=== PATIENT | female | born 1980 ===

== ENCOUNTER 2017-07-16 22:46 | Emergency (ER) | payer MEDICAID ==
[2017-07-16 23:00] VITALS: BP 95/63; PULSE 86; RESP 20; TEMP 98.7; O2SAT 98
--- NOTE | 2017-07-16 23:24 | C.PDOC ---
History Of Present Illness 36 year old female who presents to the ER with a complaint of cough, nasal congestion, and sore throat for the past 6 days. Patient states she has been using otc ampicillin with no relief which prompted ER visit. Denies fever or SOB. Time Seen by Provider: 07/16/17 23:05 Chief Complaint (Nursing): Cough, Cold, Congestion History Per: Patient History/Exam Limitations: no limitations Onset/Duration Of Symptoms: Days Current Symptoms Are (Timing): Still Present Location Of Pain: Throat Sick Contacts (Context): None Associated Symptoms: Cough, Nasal Congestion. denies: Fever Ear Symptoms: Bilateral: None Recent travel outside of the [place]: No Past Medical History Reviewed: Historical Data, Nursing Documentation, Vital Signs Vital Signs: Last Vital Signs Temp 98.7 F 07/16/17 22:57 Pulse 86 07/16/17 22:57 Resp 20 07/16/17 22:57 BP 95/63 L 07/16/17 22:57 Pulse Ox 98 07/17/17 01:08 - Medical History PMH: No Chronic Diseases Surgical History: No Surg Hx Family History: States: Unknown Family Hx - Social History Hx Alcohol Use: Yes Hx Substance Use: No - Immunization History Hx Tetanus Toxoid Vaccination: No Hx Influenza Vaccination: No Hx Pneumococcal Vaccination: No Review Of Systems Constitutional: Negative for: Fever ENT: Positive for: Nose Congestion, Throat Pain Cardiovascular: Negative for: Chest Pain Respiratory: Positive for: Cough. Negative for: Shortness of Breath Physical Exam - Physical Exam Appears: Non-toxic Skin: Normal Color, Warm, Dry Head: Atraumatic, Normacephalic, Tenderness (Frontal sinus) Ear(s): Bilateral: Normal Nose: Other (Enlarged nasal turbinates) Oral Mucosa: Moist Throat: Normal, No Erythema, No Exudate Neck: Normal, Supple Chest: Symmetrical, No Tenderness Cardiovascular: Rhythm Regular, No Murmur Respiratory: Normal Breath Sounds, No Rales, No Rhonchi, No Wheezing Gastrointestinal/Abdominal: Soft, No Tenderness Neurological/Psych: Oriented x3, Normal Speech, Normal Cognition ED Course And Treatment O2 Sat by Pulse Oximetry: 98 (Room air) Pulse Ox Interpretation: Normal Progress Note: Patient is stable in NAD, VSS, Meds prescribed and advised to follow up with her PMD. Disposition Counseled Patient/Family Regarding: Diagnosis, Need For Followup, Rx Given - Disposition Referrals: [facility] [Outside] Disposition: HOME/ ROUTINE Disposition Time: 23:22 Condition: STABLE Additional Instructions: PLEASE FOLLOW UP WITH PMD INCREASE FLUIDS GARGLE WITH WARM SALT WATER TAKE MEDS DIRECTED RETURN TO ER IF WORSE Prescriptions: Benzonatate [Tessalon Perles] 100 mg PO TID #20 sgl Cetirizine HCl [Zyrtec] 10 mg PO DAILY #20 capsule Mometasone Furoate [Nasonex] 2 spray NS DAILY #1 bottle Instructions: Upper Respiratory Infection (ED) Forms: [employer] (Afghan) - Clinical Impression Clinical Impression: Upper respiratory infection, Sinusitis - Scribe Statement The provider has reviewed the documentation as recorded by the Scribsaroj Hartley All medical record entries made by the Sultanaibsaroj were at my direction and personally dictated by me. I have reviewed the chart and agree that the record accurately reflects my personal performance of the history, physical exam, medical decision making, and the department course for this patient. I have also personally directed, reviewed, and agree with the discharge instructions and disposition.
== END 2017-07-16 23:48 | disposition home or self-care (01) ==
LOC: C.ER 22:46
DX: J06.9 Acute upper respiratory infection, unspecified (principal); J32.9 Chronic sinusitis, unspecified

== ENCOUNTER 2017-10-24 08:12 | Day surgery (SDC) | payer MEDICAID ==
[2017-10-24 08:26] VITALS: BMI 25.0
[2017-10-24 08:48] VITALS: O2SAT 100
[2017-10-24] MEDS ORDERED: Lactated Ringer's 1,000 ML IV ONE (09:13)
[2017-10-24] MEDS ORDERED: Propofol 10 mg/ml Inj (20 ML) ONE (09:14)
[2017-10-24] MEDS ORDERED: Lidocaine Hydrochloride 5 ML INJ ONE (09:14)
[2017-10-24] MEDS ORDERED: Lactated Ringer's 500 ML IV SCH (09:30)
[2017-10-24 10:01] VITALS: TEMP 98
[2017-10-24 10:17] VITALS: PULSE 87
[2017-10-24 10:47] VITALS: BP 102/48; RESP 15
== END 2017-10-24 10:43 | disposition home or self-care (01) ==
LOC: C.ENDO 08:12
PROVIDERS: ATTEND Internal Medicine
DX: K29.50 Unspecified chronic gastritis without bleeding (principal); B96.81 Helicobacter pylori [H. pylori] as the cause of diseases classified elsewhere
CPT/HCPCS: 43239; 84703; 88305; 88342; J2704; J7120

== ENCOUNTER 2018-08-05 18:26 | Emergency (ER) | payer MEDICAID ==
[2018-08-05 18:27] VITALS: BMI 25.0
[2018-08-05 18:35] VITALS: O2SAT 98
[2018-08-05] MEDS ORDERED: Sodium Chloride 0.9% 1,000 ML IV ONE (19:07)
[2018-08-05] MEDS ORDERED: Sodium Chloride 0.9% 1,000 ML ONE (19:17)
[2018-08-05 19:20] LABS: BASO % 0.4 % (0.0-2.0); EOS # 0.1 K/uL (0.0-0.7); EOS % 0.6 % (0.0-4.0); HEMOGLOBIN 11.5 g/dL (11.0-16.0); LYMPH # 1.8 K/uL (1.0-4.3); LYMPH % 21.3 % (20.0-40.0); MEAN CELL VOLUME 85.7 fL (81.0-99.0); MEAN PLATELET VOLUME 7.8 fL (7.2-11.7); MONO # 0.6 K/uL (0.0-0.8); MONO % 7.8 % (0.0-10.0); NEUT # 5.8 K/uL (1.8-7.0); NEUT % 69.9 % (50.0-75.0); NRBC % 0.1 % (0.0-2.0); RBC 3.84 Mil/uL (3.80-5.20); RED CELL DISTRIBUTION WIDTH 14.1 % (11.5-14.5); WHITE BLOOD COUNT 8.2 K/uL (4.8-10.8)
--- NOTE | 2018-08-05 19:21 | C.PDOC ---
History Of Present Illness 37-year-old female, approximately 17 weeks , presents to the ED complaining of a generalized headache since yesterday. She describes the headache as dull, aching, with gradual onset. No associated nausea, vomiting, visual changes, fever, chills, or neck pain/stiffness. Additionally patient is complaining of mild suprapubic discomfort. No vaginal bleeding, discharge, or urinary symptoms. Patient reports the has been otherwise unremarkable. She took Tylenol without relief prior to arrival. Time Seen by Provider: 08/05/18 18:41 Chief Complaint (Nursing): Abdominal Pain History Per: Patient History/Exam Limitations: no limitations Onset/Duration Of Symptoms: Days Current Symptoms Are (Timing): Still Present Radiation Of Pain To:: None Quality Of Discomfort: Cramping Abnormal Vaginal Bleeding: No Past Medical History Reviewed: Historical Data, Nursing Documentation, Vital Signs Vital Signs: Last Vital Signs Temp 98.9 F 08/05/18 18:31 Pulse 90 08/05/18 18:31 Resp 18 08/05/18 18:31 BP 96/59 L 08/05/18 18:31 Pulse Ox 98 08/05/18 18:31 - Medical History PMH: Hypercholesterolemia (CONTROL BY DIET) Denies: Chronic Kidney Disease Family History: States: Unknown Family Hx - Social History Hx Alcohol Use: No Hx Substance Use: No - Immunization History Hx Tetanus Toxoid Vaccination: No Hx Influenza Vaccination: No Hx Pneumococcal Vaccination: No Review Of Systems Constitutional: Negative for: Fever, Chills Eyes: Negative for: Vision Change, Other (photophobia) Cardiovascular: Negative for: Chest Pain Respiratory: Negative for: Shortness of Breath Gastrointestinal: Positive for: Abdominal Pain (mild suprapubic discomfort). Negative for: Nausea, Vomiting Musculoskeletal: Negative for: Neck Pain Neurological: Positive for: Headache. Negative for: Weakness, Numbness, Dizziness Physical Exam - Physical Exam Appears: Non-toxic, No Acute Distress Skin: Normal Color, Warm, Dry Head: Atraumatic, Normacephalic Eye(s): bilateral: Normal Inspection, PERRL, EOMI Neck: Normal ROM, No Midline Cervical Tenderness, Supple Chest: Symmetrical Cardiovascular: Rhythm Regular, No Murmur Respiratory: Normal Breath Sounds, No Accessory Muscle Use Gastrointestinal/Abdominal: Soft, No Tenderness, No Distention, Other (gravid abdomen, uterus is below the umbilicus, and non-tender) Extremity: Bilateral: Atraumatic, Normal Color And Temperature, Normal ROM Pulses: Left Dorsalis Pedis: Normal, Right Dorsalis Pedis: Normal Neurological/Psych: Oriented x3, Normal Speech Gait: Steady ED Course And Treatment - Laboratory Results Result Diagrams: 08/05/18 19:14 08/05/18 19:14 Lab Interpretation: Abnormal (Urine WBC 24 with 2+ leukocyte esterase and bacteria present) O2 Sat by Pulse Oximetry: 98 (RA) Pulse Ox Interpretation: Normal Progress Note: heart present 147. Patient treated with Rocephin 1gm IVPB in ED. Medical Decision Making Medical Decision Making: Impression: Headache, Abdominal pain during Initial Plan: --CMP --CBC --Urinalysis --IV fluids --Tylenol 650 mg PO Disposition Counseled Patient/Family Regarding: Studies Performed, Diagnosis, Need For Followup, Rx Given - Disposition Referrals: [facility] [Medical Doctor] - Disposition: HOME/ ROUTINE Disposition Time: 20:38 Condition: STABLE Prescriptions: Nitrofurantoin Macrocrystals [Macrobid] 1 cap PO BID #14 cap Instructions: Urinary Tract Infections in Adults Forms: [employer] ([place]icaraguan) - Clinical Impression Clinical Impression: UTI in - Scribe Statement The provider has reviewed the documentation as recorded by the Scribe (Janett Fong) Provider Attestation: All medical record entries made by the Scribe were at my direction and perso destiny dictated by me. I have reviewed the chart and agree that the record accurately reflects my personal performance of the history, physical exam, medical decision making, and the department course for this patient. I have also personally directed, reviewed, and agree with the discharge instructions and disposition.
[2018-08-05 19:26] LABS: SQUAMOUS EPITHIAL 16 /hpf (0-5); URINE BILIRUBIN NEGATIVE (NEGATIVE); URINE BLOOD NEGATIVE (NEGATIVE); URINE CLARITY Hazy (Clear); URINE COLOR Yellow (YELLOW); URINE GLUCOSE (UA) NORMAL (Normal); URINE LEUKOCYTE ESTERASE 2+ Leu/uL (Negative); URINE PROTEIN NEGATIVE (NEGATIVE)
[2018-08-05 19:33] LABS: URINE BACTERIA FEW (<OCC)
[2018-08-05 19:34] LABS: ALB/GLOB RATIO 1.2 (1.0-2.1); ALBUMIN 3.7 g/dL (3.5-5.0); ALT/SGPT 39 U/L (9-52); AST/SGOT 26 U/L (14-36); BLOOD UREA NITROGEN 9 mg/dL (7-17); CALCIUM 8.9 mg/dl (8.6-10.4); GFR NON-AFRICAN AMERICAN > 60
[2018-08-05] MEDS ORDERED: cefTRIAXone IV 1 gm in Dextros 50 ML IVPB ONE (19:45)
[2018-08-05] MEDS ORDERED: cefTRIAXone 1 gm 1 GM/100 ML BAG IVPB ONE (20:25)
[2018-08-05 21:06] VITALS: BP 110/60; PULSE 72; RESP 20; TEMP 98.2
== END 2018-08-05 21:05 | disposition home or self-care (01) ==
LOC: C.ER 18:26
DX: O23.42 Unspecified infection of urinary tract in pregnancy, second trimester (principal); Z3A.17 17 weeks gestation of pregnancy
CPT/HCPCS: 80053; 81001; 85025; 87086; 96361; 96365; 99284; J0696; J7030